=== PATIENT | male | born 1965 | race Caucasian/White ===

== ENCOUNTER → 2020-03-17 | Outpatient (CLI) | payer BC ==
--- NOTE | 2020-03-17 14:31 | MR ---
EXAMINATION TYPE: MR shoulder RT wo con DATE OF EXAM: 03/17/2020 COMPARISON: Right shoulder x-ray January 29, 2020 HISTORY: Pain in right shoulder per order. Rotator cuff tear with difficulty raising arm overhead for 2 months per patient. TECHNIQUE: Multiplanar, multisequence imaging of the right shoulder is performed without contrast. FINDINGS: Rotator Cuff: There is articular surface tearing of the posterior one third distal supraspinatus tend on and anterior one third of the distal infraspinatus tendon sagittal image 24 with entire area measu ring roughly 13 mm AP diameter sagittal image 24. Tearing measures roughly 7 mm transversely coronal image 16. Rotator cuff muscle bulk is preserved. Subscapularis tendon is intact. Acromioclavicular Joint: Moderate capsular hypertrophy and narrowing. Loss of the underlying fat plan e sagittal image 14. Distal acromion morphology unremarkable. Glenohumeral Joint: Moderate narrowing. Small joint effusion. No significant spurring. Labrum: The labrum appears grossly intact given limitation of non-arthrogram study. Biceps Tendon: The long head of biceps is in normal location within bicipital groove. Bone marrow signal: No focal abnormal marrow signal is appreciated. Other: Abnormal thickening of the inferior glenohumeral ligament is present. IMPRESSION: 1. Rim rent articular surface tearing of the posterior one third distal supraspinatus tendon and ante rior one third fibers of the distal infraspinatus tendon. No full-thickness retracted tears are prese nt. 2. Moderate AC joint arthropathy with suggestion of underlying impingement. 3. Abnormally thickened inferior glenohumeral ligament raising concern for adhesive capsulitis, corre late clinically.
== END | disposition home or self-care (01) ==
LOC: RADMRIMAIN 13:05
PROVIDERS: ATTEND Orthopaedic Surgery
DX: M12.811 Other specific arthropathies, not elsewhere classified, right shoulder (principal); S46.011A Strain of muscle(s) and tendon(s) of the rotator cuff of right shoulder, initial encounter; M24.211 Disorder of ligament, right shoulder

== ENCOUNTER → 2020-04-14 | Outpatient (CLI) | payer BC ==
[2020-04-14 09:53] LABS: Potassium 4.4 mmol/L (3.5-5.1)
[2020-04-14 10:05] LABS: Basophils # (A) 0.1 k/uL (0-0.2); Basophils % (A) 1 %; Eosinophils # (A) 0.1 k/uL (0-0.7); Eosinophils % (A) 1 %; HCT 46.8 % (39.0-53.0); HGB 15.3 gm/dL (13.0-17.5); Lymphocytes # (A) 1.1 k/uL (1.0-4.8); Lymphocytes % (A) 20 %; MCH 30.2 pg (25.0-35.0); MCHC 32.7 g/dL (31.0-37.0); MCV 92.4 fL (80.0-100.0); Mean Platelet Volume 7.7; Monocytes # (A) 0.5 k/uL (0-1.0); Monocytes % (A) 8 %; Neutrophils # (A) 3.8 k/uL (1.3-7.7); Neutrophils % (A) 67 %; Platelet Count 229 k/uL (150-450); RBC 5.07 m/uL (4.30-5.90); RDW 12.4 % (11.5-15.5); WBC 5.7 k/uL (3.8-10.6)
== END | disposition home or self-care (01) ==
LOC: LABPAT 09:02
PROVIDERS: ATTEND Orthopaedic Surgery
DX: M75.41 Impingement syndrome of right shoulder (principal)
CPT/HCPCS: 80051; 85025; 93005

== ENCOUNTER → 2020-04-14 | Outpatient (CLI) | payer BC ==
[2020-04-14 19:24] LABS: ALT 39 U/L (10-49); AST 40 U/L (14-35); African American GFR (CKD) 98.5 (60.0-200.0); C Reactive Protein <0.4 mg/dL (0.0-0.8); Calcium 9.6 mg/dL (8.7-10.3); Non-African American GFR(CKD) 84.9 (60.0-200.0)
== END | disposition home or self-care (01) ==
LOC: LABWHC1 08:55
PROVIDERS: ATTEND Orthopaedic Surgery
DX: Z01.818 Encounter for other preprocedural examination (principal); M75.41 Impingement syndrome of right shoulder; M06.4 Inflammatory polyarthropathy; Z79.899 Other long term (current) drug therapy; M25.50 Pain in unspecified joint
CPT/HCPCS: 36415; 82040; 82310; 82565; 84450; 84460; 84520; 85652; 86140

== ENCOUNTER 2020-04-28 09:54 | Day surgery (SDC) | payer BC ==
[2020-04-25 14:32] VITALS: BMI 28.2
--- NOTE | 2020-04-27 16:39 | HP ---
HISTORY AND PHYSICAL DATE OF SURGERY: 04/28/2020 Harris Mirza is a 54-year-old gentleman seen with progressive right shoulder pain. We discussed options for treatment. He elected to proceed with arthroscopy. Consent was obtained. PAST MEDICAL HISTORY: Hypertension, psoriatic arthritis. PAST SURGICAL HISTORY: Right knee surgery. DAILY MEDICATIONS: . ALLERGIES: PENICILLIN, CIPRO. SOCIAL HISTORY: He denies current tobacco use. PHYSICAL EVALUATION OF THE RIGHT SHOULDER: Flexion is 150, abduction is 140, external rotation is 40 with pain and weakness. Tenderness along the anterolateral acromion and rotator cuff insertion site. Impingement sign is positive at 90. Drop-arm sign positive. Distal neurovascular exam intact. RIGHT SHOULDER RADIOGRAPHS: Revealed a type 2 anterior acromion, evidence for acromioclavicular joint osteoarthritis and cystic changes of the greater tuberosity. Right shoulder MRI revealed rotator cuff tendon tear, acromioclavicular joint osteoarthritis, impingement. IMPRESSION: 1. Right shoulder impingement with rotator cuff tear. 2. Right shoulder acromioclavicular joint osteoarthritis. PLAN: Right shoulder arthroscopy with subacromial decompression, arthroscopic rotator cuff repair, Jude procedure and debridement. MMODL / IJN: [id number] /
[~2020-04-28 09:54] MED LIST: DEXAMETHASONE SOD PHOSPHATE 10 MG/ML 1 ML VIAL IV ONE; HYDROmorphone 0.5 MG/0.5 ML SYRINGE IVP PRN; LACTATED RINGERS 1,000 ML IV SCH; MIDAZOLAM 2 MG/2 ML VIAL IV PRN; ONDANSETRON 4 MG/2 ML VIAL IVP ONE
[2020-04-28] MEDS ORDERED: MIDAZOLAM 2 MG/2 ML VIAL IVP ONE ×2 (11:13→11:14)
--- NOTE | 2020-04-28 11:56 | P.ANPRN ---
Procedure Note - Anesthesia - Nerve Block Performed Right Interscalene Single Time Out Performed: Yes (1113) Date of Procedure: 04/28/20 Procedure Start Time: :14 Procedure Stop Time: Location of Patient: PreOp Indication: Acute Post-Operative Pain, Analgesia, Requested by Surgeon Specifically requested for management of pain by : Fermín Hamm Sedation Type: Sedate with meaningful contact maintained Preparation: Sterile Prep Position: Supine Catheter: None Needle Types: Pajunk Needle Gauge: 20 Ultrasound used to visualize needle placement: Yes Ultrasound used to observe medication spread: Yes Injectate: 0.5% Ropivacaine (see comment for volume) (20 mL with 10 mg decadron) Blood Aspirated: No Pain Paresthesia on Injection Noted: No Resistance on Injection: Normal Image Stored and Saved: Yes Events: Uneventful and Well Tolerated
[2020-04-28] MEDS ORDERED: SUCCINYLCHOLINE CHLORIDE 100 MG/5 ML SYR IV ONE (12:53)
[2020-04-28] MEDS ORDERED: PROPOFOL 10 MG/ML 20 ML VIAL IV ONE (12:53)
[2020-04-28] MEDS ORDERED: GLYCOPYRROLATE 0.2 MG/ML 2 ML VIAL ONE (12:53)
[2020-04-28] MEDS ORDERED: LIDOCAINE 1% INJ 10MG/ML (20 ML MDV) ONE (12:53)
[2020-04-28] MEDS ORDERED: MIDAZOLAM 2 MG/2 ML VIAL ONE (12:53)
[2020-04-28] MEDS ORDERED: ROPIVACAINE 5 MG/ML 30 ML VIAL ONE (12:53)
[2020-04-28] MEDS ORDERED: fentaNYL (PF) 50 MCG/ML 2 ML AMP ONE (12:53)
[2020-04-28] MEDS ORDERED: LACTATED RINGERS 1,000 ML IV ONE (13:55)
--- NOTE | 2020-04-28 14:17 | P.OP ---
Date of Procedure: 04/28/20 Preoperative Diagnosis: Right shoulder impingement Postoperative Diagnosis: 1. Right shoulder labral tear 2. Right shoulder impingement 3. Right shoulder acromioclavicular joint osteoarthritis Procedure(s) Performed: 1. Right shoulder arthroscopic labral repair 2. Right shoulder arthroscopic subacromial decompression 3. Right shoulder arthroscopic Jude procedure Implants: 2Arthrex push lock anchors Anesthesia: GETA, regional (Interscalene block) Surgeon: Fermín Hamm [employer] Systems Operator #1: Júnior Stevens Estimated Blood Loss (ml): 11 Pathology: none sent Condition: stable Disposition: PACU Indications for Procedure: 54-year-old gentleman seen with progressive right shoulder pain. After treatment options were discussed, he elected to proceed with arthroscopy. Operative Findings: See description of procedure Description of Procedure: Patient underwent an interscalene block by department of anesthesia. The patient was then taken to the operative suite. The patient underwent a general anesthetic by the department of anesthesia. The patient was placed into a lateral position and secured. There was appropriate padding of the bony prominence. Right shoulder was then prepped and draped in normal sterile orthopedic fashion. We placed the extremity in 10 pounds of longitudinal traction. A posterior incision was now made for a posterior working portal site. The trocar and cannula were inserted into the glenohumeral joint. Arthroscopy was initiated. Spinal needle was now inserted anteriorly, to ascertain the anterior working portal site. An incision was now made in that area, a trocar was inserted followed by a probe. There was an obvious anterior labral tear. The biceps appeared intact. There were grade 1 chondromalacia changes along the midportion humeral head anteriorly as well as grade 1-2 chondromalacia changes of the anterior glenoid. At this point I inserted a cannula through my anterior portal site. I now abraded the anterior glenoid with a motorized bur for labral repair. I now passed 2 Arthrex labral tape size through good bites of the labrum utilizing the labral scorpion. I now made 2 drill holes for insertion of her anchors. I now inserted both anchors compressing the labrum nicely along my abraded footprint. Sutures were clipped. We had a good solid anterior labral repair. At this point instruments removed from glenohumeral joint. The anterior cannula was removed. Utilizing the posterior working portal site, the trocar and cannula were inserted into the subacromial space. Arthroscopy initiated. I made an incision 2 fingerbreadths lateral to the acromion. I introduced my trocar followed by my ArthroCare ablator. I now began ablating thick subacromial bursal tissue, which exposed the undersurface of the anterior acromion. There was diminished subacromial space. There was a very prominent anterior acromion. A motorized bur was introduced and a subacromial decompression was performed. I also excised some osteophytes off the inferior aspect of the distal clavicle. The AC joint was visualized and noted to be fairly arthritic. The motorized bur was introduced in the anterior portal site and a Jude procedure was performed without difficulty, decompressing the AC joint nicely. I turned my attention to the rotator cuff. There was some superficial tearing along the distal supraspinatus area. I debrided that utilizing motorize shaver. I thoroughly probed the area and did not appreciated an obvious full-thickness tear. I injected 1 mL Renyte intra-articular. Instruments now removed from the portal sites. All portal sites were approximated with nylon suture. Sterile dressings were applied followed by a shoulder sling. Júnior MAIN assisted in this complex case. The patient was awakened, transferred to a bed, and taken to recovery in stable condition.
[2020-04-28 14:29] VITALS: RESP 16; TEMP 97.8
[2020-04-28 15:45] VITALS: BP 125/80; PULSE 80
== END 2020-04-28 16:15 | disposition home or self-care (01) ==
LOC: OR 09:54
PROVIDERS: ATTEND Orthopaedic Surgery
DX: M25.811 Other specified joint disorders, right shoulder (principal); M19.011 Primary osteoarthritis, right shoulder; S43.431A Superior glenoid labrum lesion of right shoulder, initial encounter; X58.XXXA Exposure to other specified factors, initial encounter; I10 Essential (primary) hypertension; L40.50 Arthropathic psoriasis, unspecified; Z98.890 Other specified postprocedural states; Z88.1 Allergy status to other antibiotic agents; Z88.0 Allergy status to penicillin; E07.9 Disorder of thyroid, unspecified; Z79.890 Hormone replacement therapy; Z79.899 Other long term (current) drug therapy; Z97.2 Presence of dental prosthetic device (complete) (partial)
CPT/HCPCS: 64415; 76942; 29823; 29824; C1713 ×2; Q4212; J2250; J1100; J0690; J2405; J2001; J3010; J2795; J0330; J2704

== ENCOUNTER → 2020-06-27 | Outpatient (CLI) | payer BC ==
--- NOTE | 2020-06-28 09:53 | MR ---
EXAMINATION TYPE: MR shoulder LT wo con DATE OF EXAM: 06/27/2020 COMPARISON: No radiographic correlation available HISTORY: 54-year-old male M25.512 PAIN IN LEFT SHOULDER TECHNIQUE: Multiplanar, multisequence imaging of the left shoulder is performed without contrast. FINDINGS: Intrinsic signal within the intracapsular portion of the long head biceps tendon. The extracapsular p ortion remains appropriately situated along the bicipital groove with mild to moderately no synovial fluid. Heterogeneous signal within the subscapularis tendon. Tiny 4 mm intrasubstance tear involves the midd le third fibers. The majority remains intact. Severe degenerative change at the acromial clavicular joint with joint space narrowing, subchondral m arrow edema, and marginal spurring. There is mass effect onto the underlying myotendinous junction of the supraspinatus and trace bursal thickening. No significant fluid distention within the bursa. Heterogeneous signal within both supraspinatus and infraspinatus tendons. Either intrasubstance or sh allow bursal sided tear of the far anterior supraspinous tendon measuring 6 cm long and 8 mm AP. Some additional intrasubstance change within the posterior fibers of the supraspinous tendon at the footp rint. Intrasubstance tear at the footprint located at the junction of the supraspinatus and infraspinatus t endons measuring 9 mm long and 8 mm AP. No clear bursal articular sided extension. Minimal fatty streaks within the teres minor muscle. No mass lesion within the quadrilateral space. R emaining rotator cuff musculature is maintained. The glenohumeral joint is intact. No discrete labral tear given nonarthrographic technique and no par alabral cyst. No glenohumeral joint effusion. No Hill-Sachs deformity or os acromiale. Mild patchy red marrow without suspicious bone marrow replacement. IMPRESSION: 1. Diffuse rotator cuff tendinosis. Areas of intrasubstance change is present. There is either an int rasubstance versus shallow bursal sided tear of the far anterior supraspinous tendon (8 x 6 mm). No h igh-grade partial or full-thickness tear. 2. Either tendinosis or interstitial tear involving the intracapsular portion of the long head biceps tendon. Mild tenosynovitis. 3. Severe AC joint OA with mild subacromial impingement.
== END | disposition home or self-care (01) ==
LOC: RADMRIMAIN 12:36
PROVIDERS: ATTEND Orthopaedic Surgery
DX: M19.012 Primary osteoarthritis, left shoulder (principal); M65.812 Other synovitis and tenosynovitis, left shoulder; M75.82 Other shoulder lesions, left shoulder

== ENCOUNTER → 2020-08-10 | Outpatient (CLI) | payer OTHER ==
[2020-08-10 08:56] LABS: Basophils % (A) 1 %; Eosinophils # (A) 0.1 k/uL (0-0.7); Eosinophils % (A) 2 %; HCT 46.3 % (39.0-53.0); HGB 15.3 gm/dL (13.0-17.5); Lymphocytes # (A) 1.7 k/uL (1.0-4.8); Lymphocytes % (A) 29 %; MCH 29.2 pg (25.0-35.0); MCV 88.4 fL (80.0-100.0); Mean Platelet Volume 7.9; Monocytes # (A) 0.4 k/uL (0-1.0); Monocytes % (A) 7 %; Neutrophils # (A) 3.3 k/uL (1.3-7.7); Neutrophils % (A) 58 %; Platelet Count 243 k/uL (150-450); RBC 5.24 m/uL (4.30-5.90); RDW 12.4 % (11.5-15.5); WBC 5.8 k/uL (3.8-10.6)
[2020-08-10 09:20] LABS: Potassium 4.8 mmol/L (3.5-5.1)
== END | disposition home or self-care (01) ==
LOC: LABPAT 07:43
PROVIDERS: ATTEND Orthopaedic Surgery
DX: Z01.812 Encounter for preprocedural laboratory examination (principal); M75.41 Impingement syndrome of right shoulder
CPT/HCPCS: 36415; 80051; 85025

== ENCOUNTER 2020-08-24 06:37 | Day surgery (SDC) | payer BC, OTHER ==
[2020-08-22 10:17] VITALS: BMI 28.7
--- NOTE | 2020-08-23 14:46 | HP ---
HISTORY AND PHYSICAL Surgery is scheduled for 08/24/2020. Harris Mirza is a 55-year-old gentleman seen with progressive left shoulder pain. We discussed options for treatment. He elected to proceed with arthroscopy. Consent regarding the procedure was obtained. PAST MEDICAL HISTORY: Hypertension, hypothyroidism, psoriatic arthritis. PAST SURGICAL HISTORY: Right shoulder arthroscopy, right knee surgery/arthroscopy, right elbow surgery. DAILY MEDICATIONS: Dovonex. ALLERGIES: CIPRO and PENICILLIN. SOCIAL HISTORY: He denies tobacco use. PHYSICAL EVALUATION OF THE LEFT SHOULDER: Flexion is 150, abduction is 140, external rotation is 50 with significant weakness, tenderness along the anterior lateral acromion and rotator cuff insertion site. Impingement positive at 90. Drop-arm sign is positive. Crossover adduction sign is positive. Distal neurovascular exam is intact. Left shoulder radiographs revealed a type 2 acromion, acromioclavicular joint osteoarthritis and cystic change of the greater tuberosity. An MRI of the left shoulder revealed impingement, acromioclavicular joint osteoarthritis and rotator cuff tendon tear. IMPRESSION: 1. Left shoulder impingement with rotator cuff tear. 2. Left shoulder acromioclavicular joint osteoarthritis. 3. Hypertension. PLAN: Left shoulder arthroscopy with subacromial decompression, arthroscopic rotator cuff repair, Jude and debridement. MMODL / IJN: [id number] /
[~2020-08-24 06:37] MED LIST changes: -DEXAMETHASONE SOD PHOSPHATE 10 MG/ML 1 ML VIAL IV ONE; +DEXAMETHASONE SOD PHOSPHATE 4 MG/ML 1 ML VIAL IV PRN; -HYDROmorphone 0.5 MG/0.5 ML SYRINGE IVP PRN; +LIDOCAINE 1% (10MG/ML) FOR IV START INTRADERMA PRN; -MIDAZOLAM 2 MG/2 ML VIAL IV PRN; -ONDANSETRON 4 MG/2 ML VIAL IVP ONE; +ONDANSETRON 4 MG/2 ML VIAL IVP PRN
[2020-08-24] MEDS ORDERED: MIDAZOLAM 2 MG/2 ML VIAL IV PRN (07:00)
[2020-08-24] MEDS ORDERED: fentaNYL (PF) 50 MCG/ML 2 ML AMP IVP PRN (07:00)
[2020-08-24] MEDS ORDERED: MIDAZOLAM 2 MG/2 ML VIAL ONE (08:36)
[2020-08-24] MEDS ORDERED: LIDOCAINE 1% INJ 10MG/ML (20 ML MDV) ONE (08:36)
[2020-08-24] MEDS ORDERED: ePHEDrine SULFATE/0.9% NACL/PF 50 MG/5 ML SYRINGE IV ONE (08:36)
[2020-08-24] MEDS ORDERED: PROPOFOL 10 MG/ML 20 ML VIAL IV ONE (08:36)
[2020-08-24] MEDS ORDERED: SUCCINYLCHOLINE CHLORIDE 100 MG/5 ML SYR IV ONE (08:36)
[2020-08-24] MEDS ORDERED: fentaNYL (PF) 50 MCG/ML 2 ML AMP ONE (08:36)
[2020-08-24] MEDS ORDERED: ROPIVACAINE 5 MG/ML 30 ML VIAL ONE (08:36)
[2020-08-24] MEDS ORDERED: DEXAMETHASONE SOD PHOSPHATE 4 MG/ML 1 ML VIAL ONE (08:36)
[2020-08-24] MEDS ORDERED: SODIUM CHLORIDE 0.9% 100 ML with ceFAZolin 2,000 MG IV ONE ×2 (08:52)
--- NOTE | 2020-08-24 09:00 | P.ANPRN ---
Procedure Note - Anesthesia - Nerve Block Performed Left Interscalene Time Out Performed: Yes (07:52) Date of Procedure: 08/24/20 Procedure Start Time: Procedure Stop Time: 08:03 Location of Patient: PreOp Indication: Acute Post-Operative Pain, Requested by Surgeon (Dr Alcazar) Sedation Type: Sedate with meaningful contact maintained Preparation: Sterile Prep Position: Supine Catheter: None Needle Types: Pajunk Needle Gauge: Other (see comment) (22g) Ultrasound used to visualize needle placement: Yes Ultrasound used to observe medication spread: Yes Injectate: 0.5% Ropivacaine (see comment for volume) (20cc + Decadron 4mg) Blood Aspirated: No Pain Paresthesia on Injection Noted: No Resistance on Injection: Normal Image Stored and Saved: Yes Events: Uneventful and Well Tolerated
[2020-08-24 10:25] VITALS: TEMP 97
--- NOTE | 2020-08-24 10:40 | P.OP ---
Date of Procedure: 08/24/20 Preoperative Diagnosis: Left shoulder impingement Postoperative Diagnosis: 1. Left shoulder rotator cuff tear 2. Left shoulder impingement 3. Left shoulder acromioclavicular joint osteoarthritis Procedure(s) Performed: 1. Left shoulder arthroscopic rotator cuff repair 2. Left shoulder arthroscopic subacromial decompression 3. Left shoulder arthroscopic Jude procedure Implants: 14.75 Arthrex swivel lock anchor Anesthesia: OMAR, local Surgeon: Fermín Hamm Guest Services Officer #1: Júnior Stevens Estimated Blood Loss (ml): 11 Pathology: none sent Condition: stable Disposition: PACU Indications for Procedure: 55-year-old patient seen with progressive left shoulder pain. After treatment options were discussed, he elected to proceed with arthroscopy. Operative Findings: see description of procedure Description of Procedure: Patient underwent an interscalene block by department of anesthesia. The patient was then taken to the operative suite. The patient underwent a general anesthetic by the department of anesthesia. The patient was placed into a lateral position and secured. There was appropriate padding of the bony prominence. Left shoulder was then prepped and draped in normal sterile orthopedic fashion. We placed the extremity in 10 pounds of longitudinal traction. A posterior incision was now made for a posterior working portal site. The trocar and cannula were inserted into the glenohumeral joint. Arthroscopy was initiated. Spinal needle was now inserted anteriorly, to ascertain the anterior working portal site. An incision was now made in that area, a trocar was inserted followed by a probe. There were very mild grade 1 chondromalacia changes of the humeral head. There was some superficial fraying of the anterior labrum. The biceps was intact. I debrided that superficial fraying of labrum. I again probed the entire labrum and it was stable. Instruments now removed from glenohumeral joint. Utilizing the posterior working portal site, the trocar and cannula were inserted into the subacromial space. Arthroscopy initiated. I made an incision 2 fingerbreadths lateral to the acromion. I introduced my trocar followed by my ArthroCare ablator. I now began ablating thick subacromial bursal tissue, which exposed the undersurface of the anterior acromion. There was diminished subacromial space. There was a very prominent anterior acromion. A motorized bur was introduced and a subacromial decompression was performed. I also excised some osteophytes off the inferior aspect of the distal clavicle. The AC joint was visualized and noted to be fairly arthritic. The motorized bur was introduced in the anterior portal site and a Jude procedure was performed without difficulty, decompressing the AC joint nicely. I turned my attention to the rotator cuff. There was an area of superficial tearing along the mid body distal supraspinatus. Upon probing the area I found a full-thickness perforation. I now debrided the margins getting down to stable tendon tissue. I abraded the footprint with a motorized bur. I passed 3 everted mattress sutures through good bites of rotator cuff tendon. I punched along the foot print area for insertion of an anchor. All 6 suture limbs were now passed through the eyelet of a 4.75 Arthrex swivel lock anchor. I now placed the eyelet into pre-punch hole. Abdiel MAIN tensioned all [address] the anchor with good fixation noted. All residual suture limbs were now clipped. We had good compression of the tendon along the entire footprint. I injected 1 mL Renyte intra-articular. Instruments now removed from the portal sites. All portal sites were approximated with nylon suture. Sterile dressings were applied followed by a shoulder sling. Júnior MAIN assisted in this case. The patient was awakened, transferred to a bed, and taken to recovery in stable condition.
[2020-08-24 11:32] VITALS: RESP 18
[2020-08-24 11:58] VITALS: BP 122/67; PULSE 80
== END 2020-08-24 11:55 | disposition home or self-care (01) ==
LOC: OR 06:37
PROVIDERS: ATTEND Orthopaedic Surgery
DX: M75.122 Complete rotator cuff tear or rupture of left shoulder, not specified as traumatic (principal); M75.42 Impingement syndrome of left shoulder; M19.012 Primary osteoarthritis, left shoulder; M94.212 Chondromalacia, left shoulder; I10 Essential (primary) hypertension; E03.9 Hypothyroidism, unspecified; L40.50 Arthropathic psoriasis, unspecified; Z79.890 Hormone replacement therapy; Z79.891 Long term (current) use of opiate analgesic; Z79.899 Other long term (current) drug therapy; Z88.0 Allergy status to penicillin; Z88.1 Allergy status to other antibiotic agents; Z98.890 Other specified postprocedural states
CPT/HCPCS: 64415; 76942; 29824; 29826; 29827; C1713; Q4212; J2250; J1100; J2405; J0690; J2001; J3010; J2795; J0330; J2704

== ENCOUNTER → 2020-10-31 | Outpatient (CLI) | payer OTHER ==
--- NOTE | 2020-10-31 08:07 | MR ---
EXAMINATION TYPE: MR knee RT wo con DATE OF EXAM: 10/31/2020 COMPARISON: Outside right knee x-ray December 02, 2019 HISTORY: R knee in her pain and swelling for 2 months. TECHNIQUE: Multiplanar, multisequence imaging of the right knee is performed without IV contrast. FINDINGS: MEDIAL MENISCUS: Medial bulging medial meniscus on coronal images. Posterior horn medial meniscus is irregular linear signal along inferior margin, there is vertical cleft in the anterior aspect of the central body sagittal image 8. There is irregular increased signal anterior horn extending to superio r meniscal surface sagittal image 8. LATERAL MENISCUS: Anterior and posterior horns are intact without tear. CRUCIATE LIGAMENTS: The anterior and posterior cruciate ligaments are intact and unremarkable. COLLATERAL LIGAMENTS: The medial collateral ligament and lateral collateral ligament complex are inta ct and unremarkable. EXTENSOR MECHANISM: Visualized quadriceps and patellar tendons are intact. Increased fluid signal in Hoffa's fat pad central and deeper aspects. EFFUSION: Small suprapatellar joint effusion. POPLITEAL CYST: Moderate-sized septated popliteal/pearson cyst at 7.7 cm sagittal image 8. TRICOMPARTMENT SPACES: Mild to moderate tricompartment joint space narrowing and spurring. CARTILAGE: Chondromalacia patella with fissuring and cartilaginous loss along the posterior patellar pole . Fissuring and cartilaginous loss medial tibiofemoral compartment. No full-thickness cartilagi nous loss seen. BONE MARROW SIGNAL: No focal abnormal marrow signal is appreciated. OTHER: No additional significant abnormality is appreciated. IMPRESSION: 1. Full thickness tearing in the medial meniscus involving anterior and posterior horns along with th e central body. 2. Moderate tricompartment degenerative changes as detailed above. 3. Moderate size septated popliteal cyst. 4. Small suprapatellar joint effusion. 5. Possible Hoffa's fat pad impingement syndrome, correlate clinically.
== END | disposition home or self-care (01) ==
LOC: RADMRIMAIN 07:01
PROVIDERS: ATTEND Orthopaedic Surgery
DX: S83.241A Other tear of medial meniscus, current injury, right knee, initial encounter (principal); M17.11 Unilateral primary osteoarthritis, right knee; M71.21 Synovial cyst of popliteal space [Baker], right knee

== ENCOUNTER 2021-01-05 11:07 | Day surgery (SDC) | payer OTHER ==
[2021-01-02 11:58] VITALS: BMI 28.7
--- NOTE | 2021-01-04 20:34 | HP ---
HISTORY AND PHYSICAL DATE OF SURGERY: 01/05/2021 Harris Mirza is a 55-year-old patient seen with progressive right knee pain. We discussed options for treatment. He elected to proceed with arthroscopy. Consent was obtained his. PAST MEDICAL HISTORY: Hypertension, hypothyroidism. PAST SURGICAL HISTORY: Elbow surgery, knee arthroscopy. DAILY MEDICATIONS: Dovonex, Tremfya. ALLERGIES: PENICILLIN, CIPRO. SOCIAL HISTORY: He denies tobacco use. PHYSICAL EVALUATION OF THE RIGHT KNEE: Range of motion 0 to 130. Mild effusion. Tenderness medial joint line. Positive medial Jose's. Ligaments stable. Hip rotation without pain. Distal neurovascular exam intact. RADIOGRAPHS: Right knee radiographs revealed moderate osteoarthritis. Right knee MRI revealed medial meniscal tear, intra-articular effusion and osteoarthritic changes. IMPRESSION: 1. Internal derangement of right knee with medial meniscal tear. 2. Hypertension. 3. Hyperlipidemia. PLAN: Right knee arthroscopy with partial meniscectomy and debridement. MMODL / IJN: [id number] /
[~2021-01-05 11:07] MED LIST changes: -DEXAMETHASONE SOD PHOSPHATE 4 MG/ML 1 ML VIAL IV PRN; -ONDANSETRON 4 MG/2 ML VIAL IVP PRN
[2021-01-05] MEDS ORDERED: ONDANSETRON 4 MG/2 ML VIAL ONE (11:26)
[2021-01-05] MEDS ORDERED: DEXAMETHASONE SOD PHOSPHATE 4 MG/ML 1 ML VIAL IV ONE (11:45)
[2021-01-05] MEDS ORDERED: BUPIVACAINE (PF) 0.25% 30 ML VIAL SQ ONE ×2 (11:58→12:38)
[2021-01-05] MEDS ORDERED: fentaNYL (PF) 50 MCG/ML 2 ML AMP ONE (12:00)
[2021-01-05] MEDS ORDERED: MIDAZOLAM 2 MG/2 ML VIAL ONE (12:00)
[2021-01-05] MEDS ORDERED: PROPOFOL 10 MG/ML 20 ML VIAL IV ONE (12:00)
[2021-01-05] MEDS ORDERED: KETOROLAC 15 MG/ML 1 ML VIAL ONE (12:00)
[2021-01-05] MEDS ORDERED: LIDOCAINE 1% INJ 10MG/ML (20 ML MDV) ONE (12:00)
[2021-01-05 12:49] VITALS: TEMP 97
--- NOTE | 2021-01-05 12:54 | P.OP ---
Date of Procedure: 01/05/21 Preoperative Diagnosis: Internal derangement right knee Postoperative Diagnosis: 1. Tear medial meniscus right knee 2. Grade 2 chondromalacia medial femoral condyle right knee 3. Reactive synovitis medial, lateral and suprapatellar compartments right knee Procedure(s) Performed: 1. Arthroscopic partial medial meniscectomy right knee 2. Arthroscopic chondroplasty medial femoral condyle right knee 3. Arthroscopic partial synovectomy medial, lateral and suprapatellar compartments right knee Anesthesia: MLA, local Surgeon: Fermín Hamm Estimated Blood Loss (ml): 7 Pathology: none sent Condition: stable Disposition: PACU Indications for Procedure: 55-year-old gentleman seen with progressive right knee pain. After having treatment options discussed, he elected to proceed with arthroscopy. Operative Findings: See description of procedure Description of Procedure: Patient was taken to the operative suite. Patient underwent a general anesthetic by the department of anesthesia. Patient was given preoperative antibiotics. The right lower extremity was placed in a well-padded arthroscopic leg orr. The right leg was prepped and draped in the normal sterile orthopedic fashion. A lateral parapatellar and suprapatellar incision was made. Trochars were inserted. Arthroscopy was initiated. Suprapatellar pouch revealed diffuse thick reactive synovitis. The patellofemoral joint appeared to articulate congruently. There was grade 1 chondromalacia with no tears present. The scope was guided into the medial gutter. No loose bodies or plica were identified. The scope was then guided into the medial compartment. A medial parapatellar incision was made. Trocar inserted followed by probe. There was a complex tear medial meniscus involving the posterior horn and midbody. There were grade 2 chondromalacia changes of the femoral condyle with some osteochondral flap tears. There was thick reactive synovitis anteriorly. I performed a partial medial meniscectomy getting down to stable meniscal tissue. I performed a chondroplasty of the medial femoral condyle getting down to stable osteochondral tissue. I performed a partial synovectomy decompressing the thick reactive synovitis. The shaver was removed. The residual meniscus was stable. The residual osteochondral surface was stable. There was good decompression of the synovitis. Scope and probe were then guided into the intercondylar notch. Cruciates were identified, probed and found to be stable. The scope and probe were then guided into lateral compartment. Lateral meniscus was probed and it was found to be stable. There was no significant chondromalacia. There was thick reactive synovitis anteriorly. I introduced a motorized shaver and performed a partial synovectomy. The shaver was removed. There was good decompression of synovitis. The scope was in guided back into the suprapatellar compartment. I introduced a motorized shaver into the super patellar compartment. I debrided some piecemeal fragments of meniscus I encountered. I performed a partial synovectomy. The shaver was removed. There was good decompression of the synovitis. I took one more look on the entire knee, no residual debris. Instruments were now removed from the joint. The joint was infiltrated with .25% Marcaine. Steri-Strips were applied to the portal sites. Sterile dressings were applied. The patient was placed into a LC hose. No tourniquet was utilized. The patient was awakened, transferred to a bed and taken to recovery stable satisfactory condition.
[2021-01-05 13:03] VITALS: RESP 16
[2021-01-05 13:41] VITALS: BP 117/63; PULSE 61
== END 2021-01-05 14:05 | disposition home or self-care (01) ==
LOC: OR 11:07
PROVIDERS: ATTEND Orthopaedic Surgery
DX: M23.203 Derangement of unspecified medial meniscus due to old tear or injury, right knee (principal); M94.261 Chondromalacia, right knee; M65.861 Other synovitis and tenosynovitis, right lower leg; I10 Essential (primary) hypertension; E03.9 Hypothyroidism, unspecified; Z98.890 Other specified postprocedural states; Z79.899 Other long term (current) drug therapy; Z88.1 Allergy status to other antibiotic agents; Z88.0 Allergy status to penicillin; E07.9 Disorder of thyroid, unspecified; Z79.890 Hormone replacement therapy
CPT/HCPCS: 29881; 29876; J2250; J1100; J0690; J2405; J2001; J3010; J1885; J2704

== ENCOUNTER → 2021-02-02 | Outpatient (CLI) | payer OTHER ==
[~2021-02-02] MED LIST changes: +DOBUTamine DRIP for NUC MED 500 MG in DEXTROSE/WATER 1 250ML.BAG IV PRN; -LACTATED RINGERS 1,000 ML IV SCH; -LIDOCAINE 1% (10MG/ML) FOR IV START INTRADERMA PRN
--- NOTE | 2021-02-02 11:54 | ECHOS ---
STRESS ECHOCARDIOGRAM DATE OF SERVICE: 02/02/2021 INDICATIONS: Abnormal EKG BASELINE HEART RATE: 6'3" BASELINE BLOOD PRESSURE: 129/80 MAXIMUM HEART RATE: 140 MAXIMUM BLOOD PRESSURE: 157/84 85% MPHR: 140 100% MPHR: 165 METS: MAXIMUM STAGE REACHED: IV TOTAL EXERCISE TIME: 10:06 STRESS DATA: Heart rate 61, pressure is 129/80 mmHg. Baseline EKG showed sinus mechanism. Dobutamine infusion at a dose of 10 mcg/kg per minute was initiated and increased to 40 mcg/kg per minute per protocol. Max heart rate was 137 beats per minute which is about 85% of maximum predicted heart rate. Maximum blood pressure was 157/84 mmHg. Clinically, the patient did not have any symptoms. The EKG did not show any significant ST or T-wave abnormalities concerning for ischemia. ECHOCARDIOGRAM IMAGES: On echocardiogram images from parasternal long axis view, parasternal short axis, apical 4 chambers and apical 2 chambers were obtained as the baseline images, at low dose dobutamine infusion, as well as on recovery. The echocardiogram images showed good augmentation in the left ventricular systolic function, I could not appreciate any evidence of wall motion abnormalities concerning for ischemia. CONCLUSION: 1. Normal EKG in response to dobutamine. 2. Normal echocardiogram in response to dobutamine. 3. Essentially normal dobutamine stress echocardiogram. MMODL / IJN: [id number] /
== END | disposition home or self-care (01) ==
LOC: RADNMMAIN 08:50
PROVIDERS: ATTEND Family Medicine
DX: R94.31 Abnormal electrocardiogram [ECG] [EKG] (principal)
CPT/HCPCS: 93351